=== PATIENT | female | born 1995 | race Caucasian/White ===

== ENCOUNTER 2019-12-15 18:34 | Emergency (ER) | payer OTHER ==
[2019-12-15] MEDS ORDERED: ASPIRIN 81 MG TABLET, CHEWABLE PO ONE (19:21)
--- NOTE | 2019-12-15 19:25 | ER Document Report ---
ED Medical Screen (RME) - General Chief Complaint: Chest Pain Stated Complaint: CHEST PAINS Time Seen by Provider: 12/15/19 19:19 Mode of Arrival: Ambulatory Information source: Patient Notes: Patient is a 23-year-old female comes emergency room complaining of anterior chest pain. Patient states it started yesterday was intermittent but has become more progressive and pronounced. She states that she has no past medical family history of father and brother having high blood pressure but does not know her mother's side of the family mother was adopted. Patient does state that she has a past medical history pertinent for hypothyroidism and takes levothyroxine. She did smoke up until 4 days ago and has stopped. Last menstrual period is approximately 2 months ago which she is on in the insertable arm control Implan[employer]. Patient states that it often hurts the last 24 hours if she takes a deep breath or moves and it is mostly on the right upper side of the chest. She has no nausea vomiting or diarrhea no shortness of breath. Physical examination: Patient is a well-nourished well-developed obese 24-year-old female who is in no apparent distress on physical exam. She does appear somewhat uncomfortable though. Lungs: Bilateral breath sounds of breath sounds increased throughout no rhonchi rales or wheezing heard. Cardiac: Regular rate and rhythm with no murmurs at a rate of 76 bpm. Abdomen: In a sitting position patient had bowel sounds present nontender to palpate throughout the entire abdomen. I have greeted and performed a rapid initial assessment of this patient. A comprehensive ED assessment evaluation of the patient, analysis of test results and completion of medical decision-making process will be conducted by an additional ED provider. - Related Data Allergies/Adverse Reactions: No Known Allergies Allergy (Unverified 12/15/19 19:14) Home Medications: levothyroxine Past Medical History - Social History Chew tobacco use (# tins/day): No Frequency of alcohol use: None Drug Abuse: None Physical Exam - Vital signs Vitals: Temp Pulse Resp BP Pulse Ox 98.6 F 75 16 145/78 H 100 12/15/19 18:47 12/15/19 18:47 12/15/19 18:47 12/15/19 18:47 12/15/19 18:47 Course - Vital Signs Vital signs: Temp Pulse Resp BP Pulse Ox 98.6 F 75 16 145/78 H 100 12/15/19 19:11 12/15/19 18:47 12/15/19 18:47 12/15/19 18:47 12/15/19 18:47
[2019-12-15 19:47] LABS: ABSOLUTE EOSINOPHILS # (AUTO) 0.1 10^3/uL (0.0-0.6); ABSOLUTE LYMPHOCYTES (AUTO) 2.2 10^3/uL (0.5-4.7); ABSOLUTE MONOCYTES (AUTO) 0.4 10^3/uL (0.1-1.4); BASOPHILS % (AUTO) 0.6 % (0-2); EOSINOPHILS % (AUTO) 0.8 % (0-6); HEMATOCRIT 36.4 % (36.0-47.0); HEMOGLOBIN 12.5 g/dL (12.0-15.5); MEAN CORPUSCULAR HEMOGLOBIN 27.6 pg (27.0-33.4); MEAN CORPUSCULAR HGB CONC 34.4 g/dL (32.0-36.0); MEAN CORPUSCULAR VOLUME 80 fl (80-97); MONOCYTES % (AUTO) 4.7 % (3-13); PLATELET COUNT 382 10^3/uL (150-450); RED BLOOD COUNT 4.53 10^6/uL (3.72-5.28); SEGMENTED NEUTROPHILS % (AUTO) 64.9 % (42-78); TOTAL CELLS COUNTED % (AUTO) 100 %; WHITE BLOOD COUNT 7.7 10^3/uL (4.0-10.5)
--- NOTE | 2019-12-15 20:07 | RADIOLOGY REPORT (SQ) ---
EXAM DESCRIPTION: CHEST SINGLE VIEW IMAGES COMPLETED DATE/TIME: 12/15/2019 6:47 pm REASON FOR STUDY: Chest pain COMPARISON: None. EXAM PARAMETERS: NUMBER OF VIEWS: One view. TECHNIQUE: Single frontal radiographic view of the chest acquired. RADIATION DOSE: NA LIMITATIONS: None. FINDINGS: LUNGS AND PLEURA: No opacities, masses or pneumothorax. No pleural effusion. MEDIASTINUM AND HILAR STRUCTURES: No masses. Contour normal. HEART AND VASCULAR STRUCTURES: Heart normal in size. Normal vasculature. BONES: No acute findings. HARDWARE: None in the chest. OTHER: No other significant finding. IMPRESSION: NO ACUTE RADIOGRAPHIC FINDING IN THE CHEST. TECHNICAL DOCUMENTATION: JOB ID: [id number] [employer]- All Rights Reserved Reading location - IP/workstation name: [email or web address]
[2019-12-15 20:08] LABS: ALBUMIN 4.6 g/dL (3.5-5.0); ALKALINE PHOSPHATASE 103 U/L (38-126); ANION GAP 8 (5-19); ASPARTATE AMINO TRANSFERASE 24 U/L (14-36); BILIRUBIN,TOTAL 0.5 mg/dL (0.2-1.3); BLOOD UREA NITROGEN 11 mg/dL (7-20); CALCIUM 9.5 mg/dL (8.4-10.2); CARBON DIOXIDE 26 mmol/L (22-30); CHLORIDE 104 mmol/L (98-107); CREATINE KINASE 95 U/L (30-135); GLUCOSE 81 mg/dL (75-110); POTASSIUM 3.8 mmol/L (3.6-5.0); TOTAL PROTEIN 8.1 g/dL (6.3-8.2)
[2019-12-15 20:18] LABS: CREATINE KINASE MB 1.34 ng/mL (<4.55)
[2019-12-15 20:25] LABS: TROPONIN I < 0.012 ng/mL
--- NOTE | 2019-12-15 21:20 | EKG REPORT ---
SEVERITY:- NORMAL ECG - SINUS RHYTHM : Confirmed by: Harvinder Handley MD 15-Dec-2019 21:18:02
[2019-12-15] MEDS ORDERED: KETOROLAC TROMETHAMINE INJ/PF 30 MG/1 ML SDV IV ONE (21:58)
--- NOTE | 2019-12-15 22:56 | RADIOLOGY REPORT (SQ) ---
EXAM DESCRIPTION: CT CHEST ANGIOGRAPHY WITHOUT THEN WITH IV CONTRAST COMPLETED DATE/TME: 12/15/2019 21:57 CLINICAL HISTORY: 24 years Female smoking OCP CP COMPARISON: Chest x-ray 12/15/2019. TECHNIQUE: Contiguous axial images obtained through the chest during administration of IV contrast. Reformatted images obtained. This exam was performed according to our department optimization program which includes automated exposure control, adjustment of the mA and/or kv according to patient size and/or use of iterative reconstruction technique. FINDINGS: No evidence aortic dissection or rupture. No evidence of aneurysm. Small amount of residual soft tissue in anterior mediastinum is consistent with thymic tissue. No evidence of pulmonary embolus. No evidence of hilar or mediastinal adenopathy. No pericardial or pleural effusion. No consolidation and no evidence of groundglass infiltrate. IMPRESSION: No evidence of pulmonary embolus No evidence of acute process
--- NOTE | 2019-12-15 23:08 | ER Document Report ---
ED General - General Chief Complaint: Chest Pain Stated Complaint: CHEST PAINS Time Seen by Provider: 12/15/19 19:19 Primary Care Provider: IGLESIA BLANKENSHIP DO [Primary Care Provider] - Follow up as needed Mode of Arrival: Ambulatory - [facility] Notes: 24-year-old female no significant medical history presents with pain in the right upper chest without radiation aggravated by certain movements and palpation without prior episodes or associated symptoms. Patient has Nexplanon implant and is a smoker. Patient denies any lower extremity edema, recent surgery/immobilization/travel, DVT/PE/hypercoag history in self or family, family history of premature cardiac disease or sudden , shortness of breath, exertional chest pain, hypertension, hyperlipidemia, cardiac history, t rauma, fever, cough - Related Data Allergies/Adverse Reactions: No Known Allergies Allergy (Unverified 12/15/19 19:14) Home Medications: levothyroxine Past Medical History - General Information source: Patient - Social History Smoking Status: Former Smoker Chew tobacco use (# tins/day): No Frequency of alcohol use: None Drug Abuse: None Family History: Reviewed & Not Pertinent Patient has homicidal ideation: No Review of Systems - Review of Systems Notes: REVIEW OF SYSTEMS: CONSTITUTIONAL : Denies fever, chills, or sweats. EENT: Denies recent cold/sinus symptoms, denies throat pain CARDIOVASCULAR: +chest pain, -SHAREE RESPIRATORY: Denies cough, denies shortness of breath. GASTROINTESTINAL: Denies abdominal pain, nausea/vomiting. GENITOURINARY: Denies difficulty urinating, painful urination. FEMALE GENITOURINARY: Denies abnormal vaginal bleeding, vaginal discharge. MUSCULOSKELETAL: Denies neck pain, back pain. SKIN: Denies rash or skin lesions. HEMATOLOGIC : Denies easy bruising or bleeding. LYMPHATIC: Denies swollen, enlarged glands. NEUROLOGICAL: Denies headache, denies change in gait. PSYCHIATRIC: Denies anxiety or stress or depression. Physical Exam - Vital signs Vitals: Temp Pulse Resp BP Pulse Ox 98.6 F 75 16 145/78 H 100 12/15/19 18:47 12/15/19 18:47 12/15/19 18:47 12/15/19 18:47 12/15/19 18:47 - Notes Notes: PHYSICAL EXAMINATION: GENERAL: Well-appearing, well-nourished and in no acute distress. HEAD: Atraumatic, normocephalic. EYES: Pupils equal round and appropriate constriction, sclera anicteric, conjunctiva are normal. ENT: nares patent, moist mucous membranes. NECK: Normal range of motion, supple without lymphadenopathy LUNGS: Breath sounds clear to auscultation bilaterally and equal. No wheezes rales or rhonchi. HEART: Regular rate and rhythm without murmurs ABDOMEN: Soft, nontender, no guarding, no masses, no CVAT EXTREMITIES: Normal range of motion, no pitting or edema. No cyanosis. NEUROLOGICAL: Awake, alert, conversing appropriately, moves all extremities spontaneously. PSYCH: Normal mood, normal affect. SKIN: Warm, Dry, normal turgor, no rashes or lesions noted. Course - Re-evaluation Re-evalutation: 12/15/19 23:07 Likely muscle strain but given history of smoking and Nexplanon will obtain CTA to rule out PE. No premature CAD risk factors, EKG and showed negative, if CTA negative DC on NSAIDs with PCP follow-up. Patient given extensive return to ED precautions which she demonstrated understanding of. - Vital Signs Vital signs: Temp Pulse Resp BP Pulse Ox 98.1 F 75 11 L 129/69 H 100 12/15/19 23:57 12/15/19 18:47 12/15/19 22:01 12/15/19 23:39 12/15/19 23:39 - Laboratory Result Diagrams: 12/15/19 19:30 12/15/19 19:30 - EKG Interpretation by Me Additional EKG results interpreted by me: 12/15/19 19:00 Heart rate 82, no significant ST elevations or depressions, no significant T wave inversions, normal intervals, QTC 425 Discharge - Discharge Clinical Impression: Chest pain Qualifiers: Chest pain type: unspecified Qualified Code(s): R07.9 - Chest pain, unspecified Condition: Good Disposition: HOME, SELF-CARE Additional Instructions: Chest Pain of Unclear Cause The exact cause of your chest pain isn't clear. Fortunately, there is no evidence of a dangerous medical condition. Further testing may be required to find the source of the pain. Most often, we find that this pain is coming from the chest wall -- the muscles or rib joints in the chest. But chest pain can come from the lung and lung lining, the esophagus, the heart valves or heart lining, and even the stom ach or gallbladder. We may prescribe medicine for pain and inflammation. Follow-up with your primary doctor within 1 week. If you have any worsening pain, trouble breathing, dizziness, fainting, or any other worsening or alarming symptoms return to the ED immediately. Prescriptions: Ibuprofen [Ibu] 600 mg PO Q6HP PRN #10 tablet PRN Reason: Referrals: IGLESIA BLANKENSHIP, [Primary Care Provider] - Follow up as needed
[2019-12-15 23:45] VITALS: BP 129/69
== END 2019-12-15 23:58 | disposition home or self-care (01) ==
LOC: ER 18:34
DX: R07.9 Chest pain, unspecified (principal); F17.200 Nicotine dependence, unspecified, uncomplicated
CPT/HCPCS: 93005; 99285; 96374; 36415; 82553; 82550; 85025; 80053; 84484; 85379; 71045; 71275; 93010; J1885